=== PATIENT | male | born 1965 | race Caucasian/White ===

== ENCOUNTER 2019-03-18 13:09 | Emergency (ER) | payer OTHER ==
[~2019-03-18] VITALS: Ht 172.7 cm; Wt 74.8 kg
--- NOTE | 2019-03-18 13:29 | NUR ---
PT CAME INTO ER STATING THAT HE HAS A HERNIA FROM STRAINING FROM CONSTIPATION. NO PAIN UPON PALPATION. AAOX4. NOT IN ANY DISTRESS. NO SOB. BREATHING EVEN AND UNLABORED. WILL CONTINUE TO MONITOR.
[2019-03-18 13:55] VITALS: BP 118/69
--- NOTE | 2019-03-18 13:55 | NUR ---
Patient discharged to home in stable condition. Written and verbal after care instructions given. Patient verbalizes understanding of instruction.
== END 2019-03-18 13:56 | disposition home or self-care (01) ==
LOC: ER 13:09
DX: K40.90 Unilateral inguinal hernia, without obstruction or gangrene, not specified as recurrent (principal); Z88.2 Allergy status to sulfonamides; Z88.1 Allergy status to other antibiotic agents

== ENCOUNTER 2019-04-22 08:03 | Emergency (ER) | payer OTHER ==
[~2019-04-22] VITALS: Ht 172.7 cm; Wt 90.7 kg
--- NOTE | 2019-04-22 08:10 | NUR ---
BIB SELF C/O "FEELING NAUSEOUS FOR 7 DAYS" -VOMITING "DISCOMFORT ON MY THROAT". PATIENT A/OX4, BREATHING EVEN AND UNLABORED, NO SOB NOTED, NEEDS ATTENDED. DR. DEAN AT BEDSIDE FOR EVAL.
--- NOTE | 2019-04-22 08:20 | NUR ---
patient refused IV line and blood draw, explained risks and benefits, still refused. Dr. Lewis made aware.
[2019-04-22] MEDS ORDERED: FAMOTIDINE (20 MG) 20 MG TABLET ONE (08:26)
[2019-04-22] MEDS ORDERED: ONDANSETRON 4 MG TAB.RAPDIS ONE ×2 (08:26→08:31)
[2019-04-22] MEDS ORDERED: FAMOTIDINE (20 MG) 20 MG TABLET PO ONE (08:30)
[2019-04-22] MEDS ORDERED: ONDANSETRON 4 MG TAB.RAPDIS PO ONE (08:30)
[2019-04-22] MEDS ORDERED: ONDANSETRON HCL/PF 4 MG/2 ML VIAL IVP ONE (08:30)
[2019-04-22] MEDS ORDERED: IV NS 0.9% 1,000 ML BAG IV ONE (08:30)
[2019-04-22] MEDS ORDERED: FAMOTIDINE/PF INJ 20 MG/2 ML VIAL IV ONE (08:30)
--- NOTE | 2019-04-22 08:37 | NUR ---
Patient discharged to home in stable condition. Written and verbal after care instructions given. Patient verbalizes understanding of instruction.
[2019-04-22 08:38] VITALS: BP 134/85
== END 2019-04-22 08:40 | disposition home or self-care (01) ==
LOC: ER 08:03
DX: R11.0 Nausea (principal); I44.0 Atrioventricular block, first degree; I45.89 Other specified conduction disorders; Z88.0 Allergy status to penicillin; Z88.2 Allergy status to sulfonamides; Z88.8 Allergy status to other drugs, medicaments and biological substances
CPT/HCPCS: 93005; 99283; J7030; Q0162 ×2

== ENCOUNTER 2019-07-17 10:42 | Emergency (ER) | payer OTHER ==
[~2019-07-17] VITALS: Ht 175.3 cm; Wt 90.7 kg
--- NOTE | 2019-07-17 11:12 | NUR ---
vomiting bright red blood x 1 episode this morning. ALSO C/O NAUSEA, LIGHT-HEADEDNESS, AND SOME DIZZINESS. REPORTS HERNIA SURGERY AT [facility] 3 MONTHS AGO. ALSO HX OF HIATAL HERNIA. DENIES CHEST PAIN, ABDOMINAL PAIN, SOB. NO ACUTE DISTRESS NOTED. AOX4, AMBULATORY, VSS, RR EVEN AND UNLABORED ON RA. MADE COMFORTABLE AND READY FOR EVAL.
[2019-07-17] MEDS ORDERED: ONDANSETRON HCL/PF 4 MG/2 ML VIAL ONE (11:27)
[2019-07-17] MEDS ORDERED: PANTOPRAZOLE 40 MG VIAL ONE (11:27)
[2019-07-17] MEDS ORDERED: PANTOPRAZOLE 40 MG VIAL IV ONE (11:30)
[2019-07-17] MEDS ORDERED: IV NS 0.9% 1,000 ML BAG IV ONE (11:30)
[2019-07-17] MEDS ORDERED: ONDANSETRON HCL/PF 4 MG/2 ML VIAL IVP ONE (11:30)
--- NOTE | 2019-07-17 11:42 | NUR ---
IV ACCESS OBTAINED. MEDS GIVEN AND IVF INFUSING. PT ROMAINE WELL. WILL CONT TO MONITOR.
[2019-07-17 11:43] LABS: BASOPHILS % (AUTO) 1.1 % (0.0-2.0); EOSINOPHILS % (AUTO) 1.8 % (0.0-6.0); HEMATOCRIT 47 % (39-51); HEMOGLOBIN 15.9 g/dL (13.5-17.5); LYMPHOCYTES % (AUTO) 24.4 % (20.0-44.0); MEAN CORPUSCULAR HGB CONC 34 g/dl (31.0-36.0); MEAN CORPUSCULAR VOLUME 89 fL (80-96); MONOCYTES # (AUTO) 0.3 /CMM (0.1-1.30); MONOCYTES % (AUTO) 6.4 % (2.0-12.0); NEUTROPHILS # (AUTO) 2.7 /CMM (1.8-8.9); NEUTROPHILS % (AUTO) 66.3 % (43.0-81.0); PLATELET COUNT (AUTO) 208 /CMM (150-450)
[2019-07-17 11:56] LABS: CREATININE 1.2 mg/dL (0.6-1.3); POTASSIUM 4.2 mmol/L (3.5-5.1)
--- NOTE | 2019-07-17 11:56 | NUR ---
PT TAKEN TO RADIOLOGY VIA WHEELCHAIR
[2019-07-17 12:02] LABS: ALBUMIN 4.1 g/dL (3.4-5.0); BILIRUBIN,DIRECT 0.2 mg/dL (0.0-0.2); BILIRUBIN,TOTAL 1.2 mg/dL (0.2-1.0); TOTAL PROTEIN, SERUM 7.7 g/dL (6.4-8.2)
--- NOTE | 2019-07-17 12:05 | NUR ---
PT BACK FROM CT. ROMAINE WELL.
[2019-07-17 12:45] VITALS: BP 138/85
--- NOTE | 2019-07-17 12:55 | NUR ---
IV removed. Catheter intact and site benign. Pressure and 4x4 applied to site. No bleeding noted.Patient discharged to home in stable condition. Written and verbal after care instructions given. Patient verbalizes understanding of instruction.
== END 2019-07-17 12:56 | disposition home or self-care (01) ==
LOC: ER 10:42
DX: K92.0 Hematemesis (principal); K21.9 Gastro-esophageal reflux disease without esophagitis; Z98.890 Other specified postprocedural states; Z88.0 Allergy status to penicillin; Z88.2 Allergy status to sulfonamides; Z88.1 Allergy status to other antibiotic agents
CPT/HCPCS: 36415; 71045; 74176; 80048; 80076; 83690; 85025; 86850; 93005; 96361; 96374; 96375; 99285; C9113; J2405; J7030